=== PATIENT | male | born 1955 | race Caucasian/White ===

== ENCOUNTER 2024-03-01 22:53 | Emergency (ER) | payer MEDICARE, BC, OTHER ==
[2024-03-01] MEDS: Sodium Chloride 0.9% 1,000 ML IV SCH (23:05)
== END 2024-03-02 01:25 | disposition home or self-care (01) ==
LOC: LB.ED 22:53 → EDBD 22:53 → LB.ED 03-02 01:25
DX: S01.01XA Laceration without foreign body of scalp, initial encounter (principal); F10.120 Alcohol abuse with intoxication, uncomplicated; Y90.9 Presence of alcohol in blood, level not specified; V49.59XA Passenger injured in collision with other motor vehicles in traffic accident, initial encounter
CPT/HCPCS: 70450; 99284; J7030